=== PATIENT | male | born 2000 | race Caucasian/White ===

== ENCOUNTER 2022-09-06 23:39 | Emergency (ER) | payer OTHER ==
[~2022-09-06] VITALS: Ht 182.9 cm; Wt 90.9 kg
[2022-09-07 04:21] VITALS: BP 135/62
[2022-09-07] MEDS ORDERED: OFLOSO OTIC ×2 (06:18→06:21)
[2022-09-07] MEDS ORDERED: OFLOXACIN 0.3 % (OCUFLOX) OPTH SOL 5ML XX STA (06:24)
== END 2022-09-07 07:23 | disposition home or self-care (01) ==
LOC: M ED 23:39
DX: H72.92 Unspecified perforation of tympanic membrane, left ear (principal); H92.02 Otalgia, left ear; H61.22 Impacted cerumen, left ear